=== PATIENT | female | born 1995 | race African-American/Black ===

== ENCOUNTER 2016-09-18 04:43 | Emergency (ER) | payer SELFPAY ==
[~2016-09-18] VITALS: Ht 167.6 cm; Wt 65.8 kg
[2016-09-18] MEDS ORDERED: methylPREDNISolone SOD SUCC 125 MG/2ML VIAL ONE (04:47)
[2016-09-18] MEDS ORDERED: IPRATROPIUM NEB FS 0.5 MG/2.5 ML AMPUL.NEB ONE (04:50)
[2016-09-18] MEDS ORDERED: ALBUTEROL FS 2.5 MG/0.5 ML VIAL.NEB ONE (04:51)
[2016-09-18] MEDS ORDERED: methylPREDNISolone SOD SUCC 125 MG/2ML VIAL IM ONE (05:00)
[2016-09-18] MEDS ORDERED: IPRATROPIUM NEB FS 0.5 MG/2.5 ML AMPUL.NEB NEB ONE (05:00)
[2016-09-18] MEDS ORDERED: ALBUTEROL FS 2.5 MG/0.5 ML VIAL.NEB NEB ONE (05:00)
[2016-09-18 05:19] VITALS: BP 104/75
== END 2016-09-18 05:19 | disposition home or self-care (01) ==
LOC: ER 04:47
DX: J98.01 Acute bronchospasm (principal); F41.9 Anxiety disorder, unspecified; J45.909 Unspecified asthma, uncomplicated; R06.4 Hyperventilation
CPT/HCPCS: A4606; J2930; Z7610